=== PATIENT | female | born 1960 | race African-American/Black ===

== ENCOUNTER 2017-07-14 17:19 | Emergency (ER) | payer BC ==
[~2017-07-14] VITALS: Ht 149.9 cm; Wt 95.3 kg
[~2017-07-14 17:19] MED LIST: METHIMAZOLE10 MG PO
[2017-07-14] MEDS ORDERED: MORPHINE SULFATE 4 MG/ML SYR IV STA (18:02)
[2017-07-14] MEDS ORDERED: ONDANSETRON HCL INJ 2 MG/ML VIAL IV STA (18:02)
[2017-07-14] MEDS ORDERED: SODIUM CHLORIDE 0.9% 1000ML 1,000 ML IV STA (18:02)
[2017-07-14] MEDS ORDERED: LIDOCAINE VISC 2% SOLN 15 ML UDC PO ONE (18:15)
[2017-07-14] MEDS ORDERED: MAGNESIUM/ALUMINUM/SIMETHICONE 30 ML UDC PO ONE (18:15)
[2017-07-14 18:21] LABS: BASOPHILS % 0.5 % (0.0-1.0); EOSINOPHILS # (AUTO) 0.3 (0.0-0.4); HEMATOCRIT 43.9 % (34.2-44.1); HEMOGLOBIN 14.1 g/dL (12.0-16.0); LYMPHOCYTES # (AUTO) 2.5 (1.0-3.2); MEAN CORPUSCULAR HEMOGLOBIN 27.8 pg (28-32); MEAN CORPUSCULAR HGB CONC 32.1 g/dL (31-35); MEAN CORPUSCULAR VOLUME 86.4 fL (81-99); MONOCYTES # (AUTO) 0.6 (0.2-0.8); MONOCYTES % 10.9 % (4.4-11.3); NEUTROPHILS # (AUTO) 2.2 (2.1-6.9); NEUTROPHILS % 38.4 % (38.7-80.0); PLATELET COUNT 275 x10e3/uL (140-360); RED BLOOD COUNT 5.08 x10e6/uL (3.6-5.1); RED CELL DISTRIBUTION WIDTH 12.3 % (11.7-14.4)
[2017-07-14 18:37] LABS: ALANINE AMINOTRANSFERASE 12 IU/L (0-55); ALBUMIN 3.8 g/dL (3.5-5.0); ALKALINE PHOSPHATASE 188 IU/L (40-150); AMYLASE 84 U/L (25-125); ANION GAP 10.9 mmol/L (8-16); BLOOD UREA NITROGEN 11 mg/dL (7-26); BUN/CREATININE RATIO 14 (6-25); CALCIUM 8.6 mg/dL (8.4-10.2); CARBON DIOXIDE 26 mmol/L (22-29); CHLORIDE 109 mmol/L (98-107); CREATINE KINASE 69 IU/L (29-168); EST GLOMERULAR FILTRATION RATE > 60 ML/MIN (60-); GLUCOSE 86 mg/dL (74-118); LIPASE 39 U/L (8-78); POTASSIUM 3.9 mmol/L (3.5-5.1); SODIUM 142 mmol/L (136-145)
--- NOTE | 2017-07-14 18:55 | Diagnostic Imaging Report ---
PROCEDURE: A single AP view of the chest. COMPARISON: Patients [facility], , CHEST 2 VIEWS, 08/01/2012, 10:37. INDICATIONS: RIGHT UPPER QUADRANT PAIN FINDINGS: Lines/tubes: None. Lungs: The lungs are well inflated and clear. There is no evidence of pneumonia or pulmonary edema. Pleura: There is no pleural effusion or pneumothorax. Heart and mediastinum: The heart and the mediastinum are unremarkable. Bones: No acute bony abnormality. IMPRESSION: 1. No acute cardiopulmonary abnormalities. Tobias Billings M.D. Dictated by: Tobias Billings M.D. on 07/14/2017 at 18:55 Electronically approved by: Tobias Billings M.D. on 07/14/2017 at 18:55
--- NOTE | 2017-07-14 19:37 | Diagnostic Imaging Report ---
EXAM: Gallbladder Ultrasound INDICATION: Abdominal pain. COMPARISON: None. TECHNIQUE: Transverse and longitudinal images of the gallbladder were obtained. FINDINGS: Liver: 12.0 cm in length. Normal echogenicity. No focal masses. Gallbladder: Stones/Sludge: None Wall: 0.3 cm Appearance: No wall thickening, pericholecystic fluid or hydrops. Sonographic Kahn's Sign: Negative Bile Ducts: Intrahepatic Ducts: No dilatation Extrahepatic Ducts: Common bile duct measures 0.4 cm, no dilatation Free Fluid: No ascites or pleural effusion Pancreas: Visualized portions are unremarkable. The main portal vein measures 0.9 cm in diameter. Visualized abdominal aorta is unremarkable. IMPRESSION: Unremarkable gallbladder ultrasound. Signed by: Dr. Stephon Yoder M.D. on 07/14/2017 7:33 PM
[2017-07-14] MEDS ORDERED: MORPHINE SULFATE 2 MG/ML SYR ONE (19:44)
--- NOTE | 2017-07-14 20:32 | Diagnostic Imaging Report ---
EXAM: CT Abdomen and Pelvis WITHOUT contrast INDICATION: Right upper quadrant and right flank pain. COMPARISON: None. TECHNIQUE: Abdomen and pelvis were scanned utilizing a multidetector helical scanner from the lung base to the pubic symphysis without administration of IV contrast. Absence of intravenous contrast decreases sensitivity for detection of focal lesions and vascular pathology. Coronal and sagittal reformations were obtained. Routine protocol was performed. IV CONTRAST: None. ORAL CONTRAST: Water RADIATION DOSE: Total DLP: 839.92 mGy*cm Estimated effective dose: (DLP x 0.015 x size factor) mSv COMPLICATIONS: None FINDINGS: LINES and TUBES: None. LOWER THORAX: Unremarkable HEPATOBILIARY: No focal hepatic lesions. No biliary ductal dilation. GALLBLADDER: No radio-opaque stones or sludge. No wall thickening. SPLEEN: No splenomegaly. PANCREAS: No focal masses or ductal dilatation. ADRENALS: No adrenal nodules KIDNEYS/URETERS: No hydronephrosis. 1.1 cm mildly high attenuation lesion exophytic of the lower pole of the left kidney cannot be further characterized due to lack of contrast. No stones. GI TRACT: No abnormal distention, wall thickening, or evidence of bowel obstruction. Appendix is normal. PELVIC ORGANS/BLADDER: Mild stranding of the anterior pelvic fat likely postoperative sequela. Small urachal remnant. LYMPH NODES: No lymphadenopathy. VESSELS: Unremarkable. PERITONEUM / RETROPERITONEUM: No free air or fluid. BONES: Unremarkable. SOFT TISSUES: Small fat-containing umbilical hernia. IMPRESSION: 1. No acute abdominal pelvic abnormality. No evidence of urolithiasis or obstructive uropathy. 2. 1.1 cm high attenuation lesion in the lower pole of the right kidney is indeterminate in etiology. Recommend further evaluation with nonemergent CT or MRI of kidneys renal mass protocol. Signed by: Dr. Stephon Yoder M.D. on 07/14/2017 8:29 PM
[2017-07-14 21:00] VITALS: BP 145/87
[2017-07-14] MEDS ORDERED: BELLADONNA ALK/PHENOBARBITAL 5 ML UDC PO SCH (21:00)
== END 2017-07-14 21:01 | disposition home or self-care (01) ==
LOC: ER 17:19
DX: R10.11 Right upper quadrant pain (principal); R10.13 Epigastric pain; R11.0 Nausea; J45.909 Unspecified asthma, uncomplicated; E05.90 Thyrotoxicosis, unspecified without thyrotoxic crisis or storm
CPT/HCPCS: 36415; 71045; 74176; 76705; 80053; 82150; 82550; 82553; 83690; 84484; 85025; 93005; 99284; J2270; J2405; J7030

== ENCOUNTER → 2017-07-22 | Outpatient (CLI) | payer BC ==
--- NOTE | 2017-07-22 19:38 | Diagnostic Imaging Report ---
Bone Scan, three-phase Reason for exam: 56 F with back pain x 3 weeks. Pain starts in RUQ of abdomen and radiates to the back. Abdominal ultrasound showed no evidence of cholecystitis. CT abdomen and pelvis showed no evidence of cholecystitis. Radiopharmaceutical: Tc-99m MDP 27 mCi Comparison: CT abdo/pelvis 07/14/2017; abdominal ultrasound 07/14/2017 Following intravenous administration of the radiopharmaceutical, dynamic flow and immediate blood pool images the abdomen and lower thoracic and lumbar spine followed by delayed total body and selected spot images were obtained. Flow and blood pool images show symmetric distribution of without focal abnormality. The delayed planar images show diffusely increased tracer in the lower thoracic spine without focal abnormality, consistent with mild degenerative change. Otherwise distribution of tracer appears physiologic throughout the skeletal system. Impression: No acute focal abnormality to suggest an etiology of the patient's back pain. Other than mild degenerative changes in the lower thoracic spine, the bone scan is normal.. Signed by: Dr. Isabella Holly M.D. on 07/22/2017 7:35 PM
== END ==
LOC: NM 13:21
PROVIDERS: ATTEND Internal Medicine Pulmonary Disease
DX: M54.9 Dorsalgia, unspecified (principal); R10.11 Right upper quadrant pain
CPT/HCPCS: 78315; A9503

== ENCOUNTER → 2017-07-25 | Outpatient (CLI) | payer BC ==
[2017-07-25 17:40] LABS: BILIRUBIN,URINE NEGATIVE (NEGATIVE); KETONES,URINE NEGATIVE (NEGATIVE); LEUKOCYTE ESTERASE ,URINE NEGATIVE (NEGATIVE); NITRITE,URINE NEGATIVE (NEGATIVE); PROTEIN,URINE DIPSTICK NEGATIVE (NEGATIVE); URINE UROBILINOGEN 1 mg/dL (0.2 - 1)
[2017-07-25 17:44] LABS: CLARITY,URINE CLEAR (CLEAR); COLOR,URINE YELLOW (YELLOW)
[2017-07-25 18:57] LABS: FREE THYROXINE INDEX 3.2095 (1.4-3.8); THYROID STIMULATING HORMONE 0.002 uIU/mL (0.350-4.940)
--- NOTE | 2017-09-08 09:26 | Diagnostic Imaging Report ---
PROCEDURE:MRI ABDOMEN WO COMPARISON:Non-contrast abdominal CT 07/14/2017. INDICATIONS:Abnormal imaging. Follow up abnormality in kidney. TECHNIQUE: Multiplanar multisequence MRI of the abdomen was obtained without contrast. T1 weighted, T2 weighted, Dual echo, and DWI images were obtained. FINDINGS: Lower chest: Unremarkable Hepatobiliary: Normal contour and signal. No focal lesions. No intrahepatic or extrahepatic biliary ductal dilatation. Gallbladder: No stones or sludge. Spleen: No splenomegaly. No focal lesions. Pancreas: No focal masses or ductal dilatation. Adrenals: No nodules. Kidneys: Previous right inferior pole lesion is barely perceived secondary to motion and slice thickness. Lesion measures approximately 0.7 cm and appears T1 isointense to hyperintense relative to the renal cortex (series 7 and 8 image 35) and T2 hypointense (series 9 image 16). No definite restricted diffusion. No hydronephrosis. No left renal masses. GI Tract: Unremarkable. Vessels: Preserved flow voids. Lymph Nodes: No lymphadenopathy. Bones: No suspicious marrow signal abnormalities. CONCLUSION: Limited evaluation without IV contrast. Right renal lesion remains indeterminate and may represent a hemorrhagic/proteinaceous cyst or a solid mass. Consider renal ultrasound for further evaluation. Dictated by: Loki Lee M.D. on 07/25/2017 at 18:51 Electronically approved by: Loki Lee M.D. on 07/25/2017 at 18:51
== END ==
LOC: MRI 16:56
PROVIDERS: ATTEND Internal Medicine Pulmonary Disease
DX: M54.9 Dorsalgia, unspecified (principal); N28.9 Disorder of kidney and ureter, unspecified
CPT/HCPCS: 36415; 74181; 81003; 84436; 84443; 84479; 87086

== ENCOUNTER → 2017-07-29 | Outpatient (CLI) | payer BC ==
--- NOTE | 2017-07-29 17:11 | Diagnostic Imaging Report ---
PROCEDURE:US RETROPERITONEAL ( KIDNEY ). COMPARISON:Patients [facility], MR, MRI ABDOMEN WO, 07/25/2017, 17:54. Patients [facility], CT, CT ABDOMEN/PELVIS WO, 07/14/2017, 20:07. INDICATIONS:RENAL CYST TECHNIQUE: Gabriel-scale and color sonographic images of the bilateral kidneys and bladder where obtained in transverse and longitudinal planes. FINDINGS: Exam limited by patient's body habitus. RIGHT KIDNEY: 10.0 cm, cortex 1.1 cm Cysts: None visualized Solid masses: None Stones: None Hydronephrosis: None Echogenicity: Normal LEFT KIDNEY: 10.1 cm, cortex 1.6 cm Cysts: None Solid masses: None Stones: None Hydronephrosis: None Echogenicity: Normal Bladder: No focal lesions. Bilateral ureteral jets are identified. CONCLUSION: 1. Exam limited by patient's body habitus. The previously described small cyst in the inferior pole of the right kidney could not be visualized on ultrasound. 2. Otherwise, unremarkable exam. Tobias Billings M.D. Dictated by: Tobias Billings M.D. on 07/29/2017 at 17:11 Electronically approved by: Tobias Billings M.D. on 07/29/2017 at 17:11
== END ==
LOC: US 12:35
PROVIDERS: ATTEND Internal Medicine Pulmonary Disease
DX: N28.1 Cyst of kidney, acquired (principal)
CPT/HCPCS: 76770

== ENCOUNTER → 2018-01-20 | Outpatient (CLI) | payer BC | LOC: MAMMO 11:56 | PROVIDERS: ATTEND Obstetrics & Gynecology | DX: Z12.31 Encounter for screening mammogram for malignant neoplasm of breast (principal) | CPT/HCPCS: 77067 ==

== ENCOUNTER 2018-04-02 18:00 | Emergency (ER) | payer BC ==
[~2018-04-02] VITALS: Ht 149.9 cm; Wt 95.3 kg
--- OUTSIDE RECORDS SUMMARY | 2018-04-02 18:03 | XMS REPORT ---
Author [facility] Address Unknown Phone Unavailable Care Team Providers Care Gas Line Repairer Name Role Phone EVIN MORALES Unavailable Unavailable ARNALDO HOGAN Unavailable Unavailable Osman CROUCH Unavailable Unavailable Problems This patient has no known problems. Allergies, Adverse Reactions, Alerts This patient has no known allergies or adverse reactions. Medications This patient has no known medications. Results Test Description Test Time Test Comments Text Results Atomic Results Result Comments MAMMOGRAPHY DIGITAL SCR BILAT 2018-01-20 12:37:00 [place] [address] Patient Name: EILEEN FRIEDMAN MR #: [id number] : 1960 Age/Sex: 57/F Req #: [id number] Adm Physician: Ordered by: EVIN MORALES MD Report #: [id number] Location: MAMMO Room/Bed: Procedure: [id number] MG/MAMMOGRAPHY DIGITAL SCR BILAT Exam Date: 01/20/18 Exam Time: 1215 REPORT STATUS: Signed #[id number] - MGSCRBIL #BILATERAL DIGITAL SCREENING MAMMOGRAM WITH CAD: 01/20/2018 CLINICAL: Routine screening. Comparison is made to exams dated: 11/03/2016 mammogram and 11/03/2015 mammogram - [facility]. Current study contains 4 films. There are scattered fibroglandular elements in both breasts. Current study was also evaluated with a Computer Aided Detection (CAD) system. There are benign calcifications in both breasts. There also are benign lymph nodes in both breasts. No significant masses, calcifications, or other findings are seen in either breast. There has been no significant interval change. IMPRESSION: BENIGN There is no mammographic evidence of malignancy. A 1 year screening mammogram is recommended. The patient will be notified by letter of the results. Willy houston/yulisa:01/26/2018 07:40:29 [employer] Wildlife Biologist: Vale PIERCE)(M), [facility] letter sent: Compared to Prior B9 Mammogram BI- RADS: 2 Benign Dictated By: WILLY OLIVARES DO 9 Transcribed By: YULISA on 01/26/18739 COPY TO: EVIN MORALES MD US RENAL RETROPERITONEAL COMP [place] [address] Patient Name: EILEEN FRIEDMAN MR #: [id number] : 1960 Age/Sex: 56/F Req #: [id number] [facility] Physician: Ordered by: ARNALDO HOGAN MD Report #: [id number] Location: Room/Bed: Procedure: [id number] US/US RENAL RETROPERITONEAL COMP Exam Date: 07/29/17 Exam Time: 1249 REPORT STATUS: Signed PROCEDURE: US RETROPERITONEAL ( KIDNEY ). COMPARISON: [facility], MR, MRI ABDOMEN WO, 07/25/2017, 17:54. [facility], CT, CT ABDOMEN/PELVIS WO, 07/14/2017, 20:07. INDICATIONS: RENAL CYST TECHNIQUE: Gabriel-scale and color sonographic images of the bilateral kidneys and bladder where obtained in transverse and longitudinal planes. FINDINGS: Exam limited by patient's body habitus. RIGHT KIDNEY: 10.0 cm, cortex 1.1 cm Cysts: None visualized Solid masses: None Stones: None Hydronephrosis: None Echogenicity: Normal LEFT KIDNEY: 10.1 cm, cortex 1.6 cm Cysts: None Solid masses: None Stones: None Hydronephrosis: None Echogenicity: Normal Bladder: No focal lesions. Bilateral ureteral jets are identified. CONCLUSION: 1. Exam limited by patient's body habitus. The previously described small cyst in the inferior pole of the right kidney could not be visualized on ultrasound. 2. Otherwise, unremarkable exam. Tobias Cannon M.D. Dictated by: Tobias Cannon M.D. on 07/29/2017 at 17:11 Electronically approved by: Tobias Cannon M.D. on 07/29/2017 at 17:11 Dictated By: TOBIAS CANNON MD 10 Transcribed By: MAKI on 07/29/171710 COPY TO: ARNALDO HOGAN MD MRI ABDOMEN WO [place] [address] Patient Name: EILEEN FRIEDMAN MR #: [id number] : 1960 Age/Sex: 56/F Req #: [id number] Adm Physician: Ordered by: ARNALDO HOGAN MD Report #: [id number] Location: MRI Room/Bed: Procedure: [id number] MRI/MRI ABDOMEN WO Exam Date: Exam Time: REPORT STATUS: Signed PROCEDURE: MRI ABDOMEN WO COMPARISON: Non-contrast abdominal CT 07/14/2017. INDICATIONS: Abnormal imaging. Follow up abnormality in kidney. TECHNIQUE: Multiplanar multisequence MRI of the abdomen was obtained without contrast. T1 weighted, T2 weighted, Dual echo, and DWI images were obtained. FINDINGS: Lower chest: Unremarkable Hepatobiliary: Normal contour and signal. No focal lesions. No intrahepatic or extrahepatic biliary ductal dilatation. Gallbladder: No stones or sludge. Spleen: No splenomegaly. No focal lesions. Pancreas: No focal masses or ductal dilatation. Adrenals: No nodules. Kidneys: Previous right inferior pole lesion is barely perceived secondary to motion and slice thickness. Lesion measures approximately 0.7 cm and appears T1 isointense to hyperi ntense relative to the renal cortex (series 7 and 8 image 35) and T2 hypointense (series 9 image 16). No definite restricted diffusion. No hydronephrosis. No left renal masses. GI Tract: Unremarkable. Vessels: Preserved flow voids. Lymph Nodes: No lymphadenopathy. Bones: No suspicious marrow signal abnormalities. CONCLUSION: Limited evaluation without IV contrast. Right renal lesion remains indeterminate and may represent a hemorrhagic/proteinaceous cyst or a solid mass. Consider renal ultrasound for further evaluation. Dictated by: Casandra Momin M.D. on 07/25/2017 at 18:51 Electronically approved by: Loki Momin M.D. on 07/25/2017 at 18:51 Dictated By: LOKI MOMIN MD 50 Transcribed By: MAKI on 07/25/171850 COPY TO: ARNALDO HOGAN MD BONE SCAN, 3 PHASE [place] [address] Patient Name: EILEEN FRIEDMAN MR #: [id number] : 1960 Age/Sex: 56/F Req #: [id number] Adm Physician: Ordered by: ARNALDO HOGAN MD Report #: [id number] Location: [place] Room/Bed: Procedure: [id number] NM/BONE SCAN, 3 PHASE Exam Date: 07/22/17 Exam Time: 1400 REPORT STATUS: Signed Bone Scan, three-phase Reason for exam: 56 F with back pain x 3 weeks. Pain starts in RUQ of abdomen and radiates to the back. Abdominal ultrasound showed no evidence of cholecystitis. CT abdomen and pelvis showed no evidence of cholecystitis. Radiopharmaceutical: Tc-99m MDP 27 mCi Comparison: CT abdo/pelvis 07/14/2017; abdominal ultrasound 07/14/2017 Following intravenous administration of the radiopharmaceutical, dynamic flow and immediate blood pool images the abdomen and lower thoracic and lumbar spine followed by delayed total body and selected spot images were obtained. Flow and blood pool images show symmetric distribution of without focal abnormality. The delayed planar images show diffusely increased tracer in the lower thoracic spine without focal abnormality, consistent with mild degenerative change. Otherwise distribution of tracer appears physiologic throughout the skeletal system. Impression: No acute focal abnormality to suggest an etiology of the patient's back pain. Other than mild degenerative changes in the lower thoracic spine, the bone scan is normal.. Signed by: Dr. Vale Holly M.D. on 07/22/2017 7:35 PM Dictated By: VALE HOLLY MD 34 Transcribed By: EUGENE on 07/22/171934 COPY TO: ARNALDO HOGAN MD CT ABDOMEN/PELVIS [place] [address] Patient Name: EILEEN FRIEDMAN MR #: [id number] : 1960 Age/Sex: 56/F Req #: [id number] Adm Physician: Ordered by: GRIS SALAZAR MD Report #: [id number] Location: ER Room/Bed: Procedure: [id number] CT/CT ABDOMEN/PELVIS WO Exam Date: 07/14/17 Exam Time: 1999 REPORT STATUS: Signed EXAM: CT Abdomen and Pelvis WITHOUT contrast INDICATION: Right upper quadrant and right flank pain. COMPARISON: None. TECHNIQUE: Abdomen and pelvis were scanned utilizing a multidetector helical scanner from the lung base to the pubic symphysis without administration of IV contrast. Absence of intravenous contrast decreases sensitivity for detection of focal lesions and vascular pathology. Coronal and sagittal reformations were obtained. Routine protocol was performed. IV CONTRAST: None. ORAL CONTRAST: Water RADIATION DOSE: Total DLP: 839.92 mGy*cm Estimated effective dose: (DLP x 0.015 x size factor) mSv COMPLICATIONS: None FINDINGS: LINES and TUBES: None. LOWER THORAX: Unremarkable HEPATOBILIARY: No focal hepatic lesions. No biliary ductal dilation. GALLBLADDER: No radio-opaque stones or sludge. No wall thickening. SPLEEN: No splenomegaly. PANCREAS: No focal masses or ductal dilatation. ADRENALS: No adrenal nodules KIDNEYS/URETERS: No hydronephrosis. 1.1 cm mildly high attenuation lesion exophytic of the lower pole of the left kidney cannot be further characterized due to lack of contrast. No stones. GI TRACT: No abnormal distention, wall thickening, or evidence of bowel obstruction. Appendix is normal. PELVIC ORGANS/BLADDER: Mild stranding of the anterior pelvic fat likely postoperative sequela. Small urachal remnant. LYMPH NODES: No lymphadenopathy. VESSELS: Unremarkable. PERITONEUM / RETROPERITONEUM: No free air or fluid. BONES: Unremarkable. SOFT TISSUES: Small fat- containing umbilical hernia. IMPRESSION: 1. No acute abdominal pelvic abnormality. No evidence of urolithiasis or obstructive uropathy. 2. 1.1 cm high attenuation lesion in the lower pole of the right kidney is indeterminate in etiology. Recommend further evaluation with nonemergent CT or MRI of kidneys renal mass protocol. Signed by: Dr. Stephon Jones M.D. on 07/14/2017 8:29 PM Dictated By: ARGENIS JONES MD, MD 28 Transcribed By: EUGENE on 07/14/172028 COPY TO: GRIS SALAZAR MD CHEST SINGLE (NOT PORTABLE) [facility] [address] [place] [address] Patient Name: EILEEN FRIEDMAN MR #: [id number] : 1960 Age/Sex: 56/F Req #: [id number] Adm Physician: Ordered by: MITZY ELLIS ORDER EDITOR Report #: [id number] Location: ER Room/Bed: Procedure: [id number] DX/CHEST SINGLE (NOT PORTABLE) Exam Date: 07/14/17 Exam Time: 1840 REPORT STATUS: Signed PROCEDURE: A single AP view of the chest. COMPARISON: [facility], , CHEST 2 VIEWS, 08/01/2012, 10:37. INDICATIONS: RIGHT UPPER QUADRANT PAIN FINDINGS: Lines/tubes: None. Lungs: The lungs are well inflated and clear. There is no evidence of pneumonia or pulmonary edema. Pleura: There is no pleural effusion or pneumothorax. Heart and mediastinum: The heart and the mediastinum are unremarkable. Bones: No acute bony abnormality. IMPRESSION: 1. No acute cardiopulmonary abnormalities. Tobias Cannon M.D. Dictated by: Tobias Cannon M.D. on 07/14/2017 at 18:55 Electronically approved by: Tobias Cannon M.D. on 07/14/2017 at 18:55 Dictated By: TOBIAS CANNON MD 54 Transcribed By: MAKI on 07/14/171854 COPY TO: MITZY ELLIS ORDER EDITOR US GALLBLADDER [facility] [address] [place] [address] Patient Name: EILEEN FRIEDMAN MR #: [id number] : 1960 Age/Sex: 56/F Req #: [id number] Adm Physician: Ordered by: MITZY ELLIS ORDER EDITOR Report #: [id number] Location: ER Room/Bed: Procedure: [id number] US/US GALLBLADDER Exam Date: 07/14/17 Exam Time: 1857 REPORT STATUS: Signed EXAM: Gallbladder Ultrasound INDICATION: Abdominal pain. COMPARISON: None. TECHNIQUE: Transverse and longitudinal images of the gallbladder were obtained. FINDINGS: Liver: 12.0 cm in length. Normal echogenicity. No focal masses. Gallbladder: Stones/Sludge: None Wall: 0.3 cm Appearance: No wall thickening, pericholecystic fluid or hydrops. Sonographic Kahn's Sign: Negative Bile Ducts: Intrahepatic Ducts: No dilatation Extrahepatic Ducts: Common bile duct measures 0.4 cm, no dilatation Free Fluid: No ascites or pleural effusion Pancreas: Visualized portions are unremarkable. The main portal vein measures 0.9 cm in diameter. Visualized abdominal aorta is unremarkable. IMPRESSION: Unremarkable gallbladder ultrasound. Signed by: Dr. Stephon Jones M.D. on 07/14/2017 7:33 PM Dictated By: ARGENIS JONES MD, MD 32 Transcribed By: EUGENE on 07/14/171932 COPY TO: MITZY ELLIS ORDER EDITOR
--- NOTE | 2018-04-02 19:26 | Diagnostic Imaging Report ---
EXAMINATION: Head CT HISTORY: Status post fall, trauma, pain COMPARISON: None available TECHNIQUE: Multidetector axial images were obtained without contrast from the foramen magnum to the vertex . The images were reconstructed using brain and bone algorithms. Thin section brain images were reformatted into coronal and sagittal planes. Image quality: Motion/streaking artifact limits the evaluation of the skull base and posterior cranial fossa. Dose modulation, iterative reconstruction, and/or weight based adjustment of the mA/kV was utilized to reduce the radiation dose to as low as reasonably achievable. FINDINGS: Parenchyma: 1. No abnormal densities. 2. No mass or hemorrhage. No CT evidence of acute territorial vascular insult. Extra-axial spaces:No abnormal density. No extra-axial fluid collections Brain volume: Normal for age. Ventricles: No hydrocephalus or displacement. Arteries: No density suggestive of thrombus. Dural sinuses: No abnormal density. Extra-axial spaces: No abnormal density. Foramen magnum: No mass, Chiari malformation, or basilar invagination. Sella: No obvious mass. Paranasal/mastoid sinuses: Imaged portions unremarkable. Skull/Scalp: No lytic or blastic lesions. No fractures. IMPRESSION: No intracranial abnormalities, particularly no hemorrhage. Signed by: Dr. Shala Cabello M.D. on 04/02/2018 7:22 PM
--- NOTE | 2018-04-02 19:29 | Diagnostic Imaging Report ---
EXAMINATION: CT of the cervical spine HISTORY: Status post fall, trauma, pain COMPARISON: None available TECHNIQUE: Multidetector helical axial images were obtained without contrast from the foramen magnum to T1. The images were reconstructed using bone and soft tissue algorithms and were viewed in axial, sagittal and coronal planes. Dose modulation, iterative reconstruction, and/or weight based adjustment of the mA/kV was utilized to reduce the radiation dose to as low as reasonably achievable. FINDINGS: Alignment: Normal alignment and lordosis Soft tissues: Severe enlargement of the thyroid gland with narrowing of the trachea, likely related to multinodular goiter. Vertebrae: Normal height and density. No acute fracture, infection or neoplasm Degenerative changes: Opacification of the posterior longitudinal ligament at C2, C4, C5 and C6 contributes to canal narrowing. C1-C2: Normal C2-C3: No significant and moderate canal stenosis. Foraminal stenosis. Moderate canal stenosis C3-C4: Moderate facet arthrosis without stenosis foraminal stenosis. Canal stenosis. C4-C5: Uncovertebral and facet arthrosis. Severe right C5-C6: Mild canal narrowing C6-C7: Uncovertebral arthrosis without significant stenoses C7-T1: Small disc osteophyte. No significant stenoses IMPRESSION: 1. No acute cervical spine postraumatic abnormalities. 2. Mild chronic degenerative changes of the tail above. Note: Acute postraumatic spinal cord, vascular or ligamentous injuries cannot adequately be assessed by CT. Signed by: Dr. Shala Cabello M.D. on 04/02/2018 7:26 PM
--- NOTE | 2018-04-02 19:29 | Diagnostic Imaging Report ---
Examination: CT Face without Contrast History:Face trauma. Comparison studies: None Technique: Axial images were obtained through the maxillofacial region. Coronal and sagittal reconstructions obtained from the axial data. Dose modulation, iterative reconstruction, and/or weight based adjustment of the mA/kV was utilized to reduce the radiation dose to as low as reasonably achievable. Intravenous contrast: None Findings: Soft tissues: Small right frontal and periorbital soft tissue hematoma. Bones: No fractures or bony abnormalities. Orbits: Globes: Intact Extra or intraconal abnormalities: None. Paranasal sinuses: Mild inflammatory mucosal thickening of the bilateral anterior and posterior paranasal sinuses. IMPRESSION: 1. No acute facial fracture. 2. Small right frontal and periorbital soft tissue hematoma. Signed by: Dr. Teresa Brunson M.D. on 04/02/2018 7:26 PM
[2018-04-02] MEDS ORDERED: TYLENOL WITH C1 EACH PO (19:58)
[2018-04-02 20:19] VITALS: BP 141/70
== END 2018-04-02 20:29 | disposition home or self-care (01) ==
LOC: ER 18:00
DX: S00.83XA Contusion of other part of head, initial encounter (principal); S00.11XA Contusion of right eyelid and periocular area, initial encounter; S50.11XA Contusion of right forearm, initial encounter; R51 Headache; Y93.E1 Activity, personal bathing and showering; Y92.002 Bathroom of unspecified non-institutional (private) residence as the place of occurrence of the external cause; E07.9 Disorder of thyroid, unspecified; E66.9 Obesity, unspecified
CPT/HCPCS: 70450; 70486; 72125; 99283

== ENCOUNTER → 2018-04-18 | Day surgery (SDC) | payer BC ==
[~2018-04-18] MED LIST changes: +FENTANYL CITRATE/PF 100MCG/2 ML INJ ONE; +LIDOCAINE HCL 2% LOCAL INJ 5 ML SDV VIAL INJ ONE; +MIDAZOLAM HCL 2 MG/2 ML VIAL ONE; +PROPOFOL IV EMULSION 10 MG/ML 20 ML VIAL ONE; +TYLENOL WITH C1 EACH PO
== END | disposition home or self-care (01) ==
LOC: OR 05:44
PROVIDERS: ATTEND Internal Medicine Gastroenterology
DX: Z12.11 Encounter for screening for malignant neoplasm of colon (principal); J45.909 Unspecified asthma, uncomplicated; D86.9 Sarcoidosis, unspecified; D12.0 Benign neoplasm of cecum; K64.8 Other hemorrhoids; Z01.810 Encounter for preprocedural cardiovascular examination; Z88.0 Allergy status to penicillin; Z68.41 Body mass index [BMI] 40.0-44.9, adult
CPT/HCPCS: 45384; 93005; J2001; J2250; J2704; 45378

== ENCOUNTER 2018-06-20 13:31 | Emergency (ER) | payer BC, OTHER ==
[~2018-06-20] VITALS: Ht 149.9 cm; Wt 97.1 kg
[~2018-06-20 13:31] MED LIST changes: -FENTANYL CITRATE/PF 100MCG/2 ML INJ ONE; -LIDOCAINE HCL 2% LOCAL INJ 5 ML SDV VIAL INJ ONE; -MIDAZOLAM HCL 2 MG/2 ML VIAL ONE; -PROPOFOL IV EMULSION 10 MG/ML 20 ML VIAL ONE
[2018-06-20] MEDS ORDERED: ALBUTEROL SULF 0.083% NEB SOLN 3 ML NEB NEB STA (13:43)
[2018-06-20] MEDS ORDERED: IPRATROPIUM BROMIDE 0.02% 2.5 ML NEB NEB ONE (13:45)
[2018-06-20] MEDS ORDERED: METHYLPREDNISOLONE SOD SUCC 125 MG/2ML VIAL IV ONE (13:45)
--- NOTE | 2018-06-20 14:57 | Diagnostic Imaging Report ---
EXAMINATION: CXR 2 VIEW - HOPD INDICATION: Wheezing. COMPARISON: None FINDINGS: TUBES and LINES: None. LUNGS: Lungs are mildly hyperinflated. Mild bronchial wall thickening. No evidence of lobar consolidation. PLEURA: No pleural effusion or pneumothorax. HEART AND MEDIASTINUM: The cardiomediastinal silhouette is unremarkable. BONES AND SOFT TISSUES: No acute osseous abnormality. Degenerative changes of the visualized spine. UPPER ABDOMEN: No free air under the diaphragm. IMPRESSION: Mildly hyperinflated lungs consistent with reactive airways disease. Mild bronchial wall thickening, which could reflect bronchitis. No evidence of lobar pneumonia. Signed by: Dr. Mateusz Norris MD on 06/20/2018 2:54 PM
== END 2018-06-20 15:25 | disposition home or self-care (01) ==
LOC: FSED 13:31
DX: R06.00 Dyspnea, unspecified (principal); R05 Cough; J45.901 Unspecified asthma with (acute) exacerbation; Z87.891 Personal history of nicotine dependence
CPT/HCPCS: 71046; 99284; J2930

== ENCOUNTER → 2018-12-07 | Outpatient (CLI) | payer BC ==
[2018-12-07 11:26] LABS: BASOPHILS % 0.6 % (0.0-1.0); EOSINOPHILS # (AUTO) 0.3 (0.0-0.4); EOSINOPHILS % 5.7 % (0.0-6.0); HEMATOCRIT 36.9 % (34.2-44.1); HEMOGLOBIN 11.2 g/dL (12.0-16.0); LYMPHOCYTES # (AUTO) 1.8 (1.0-3.2); LYMPHOCYTES % 35.2 % (18.0-39.1); MEAN CORPUSCULAR HEMOGLOBIN 25.6 pg (28-32); MEAN CORPUSCULAR HGB CONC 30.4 g/dL (31-35); MEAN CORPUSCULAR VOLUME 84.2 fL (81-99); MONOCYTES # (AUTO) 0.5 (0.2-0.8); MONOCYTES % 8.8 % (4.4-11.3); NEUTROPHILS # (AUTO) 2.5 (2.1-6.9); NEUTROPHILS % 49.5 % (38.7-80.0); PLATELET COUNT 305 x10e3/uL (140-360); RED BLOOD COUNT 4.38 x10e6/uL (3.6-5.1); RED CELL DISTRIBUTION WIDTH 12.6 % (11.7-14.4)
[2018-12-07 11:48] LABS: ALANINE AMINOTRANSFERASE 7 IU/L (0-55); ALBUMIN 3.8 g/dL (3.5-5.0); ALKALINE PHOSPHATASE 120 IU/L (40-150); BLOOD UREA NITROGEN 13 mg/dL (7-26); BUN/CREATININE RATIO 15 (6-25); CARBON DIOXIDE 26 mmol/L (22-29); CHLORIDE 108 mmol/L (98-107); CHOL/HDL RATIO 2.3 (3.0-3.6); CHOLESTEROL 179 MD/DL (0-199); CREATININE, SERUM 0.84 mg/dL (0.57-1.11); EST GLOMERULAR FILTRATION RATE > 60 ML/MIN (60-); GLUCOSE 98 mg/dL (74-118); HDL CHOLESTEROL 77 MG/DL (40-60); LDL CHOLESTEROL 93 MG/DL (60-130); SODIUM 141 mmol/L (136-145); TRIGLYCERIDES 43 MG/DL (0-149)
--- NOTE | 2018-12-07 12:04 | Diagnostic Imaging Report ---
EXAMINATION: CHEST 2 VIEWS INDICATION: Asthma COMPARISON: Chest radiograph of 06/20/2018 FINDINGS: TUBES and LINES: None. LUNGS: The lung volumes are normal. Patchy opacity at the right lung base, new compared to 06/20/2018. PLEURA: No pleural effusion or pneumothorax. HEART AND MEDIASTINUM: The cardiomediastinal silhouette is normal in size and contour. BONES AND SOFT TISSUES: No acute fracture or dislocation. UPPER ABDOMEN: No free air under the diaphragm. IMPRESSION: Patchy opacity at the right lung base is new compared to the prior 06/20/2018 and may represent aspiration or early pneumonia in the proper clinical setting. Signed by: Jose Browne MD on 12/07/2018 12:01 PM
[2018-12-07 12:08] LABS: FREE THYROXINE INDEX 2.4157 (1.4-3.8); THYROID STIMULATING HORMONE 0.533 uIU/mL (0.350-4.940)
[2018-12-07 12:26] LABS: FOLATE 8.3 ng/mL (7.0-15.4)
== END ==
LOC: RAD 10:40
PROVIDERS: ATTEND Internal Medicine Pulmonary Disease
DX: J45.909 Unspecified asthma, uncomplicated (principal); D86.9 Sarcoidosis, unspecified; E04.9 Nontoxic goiter, unspecified
CPT/HCPCS: 36415; 71046; 80053; 80061; 82607; 82652; 82670; 82746; 84436; 84443; 84479; 85025

== ENCOUNTER → 2019-01-22 | Outpatient (CLI) | payer BC ==
--- NOTE | 2019-01-30 09:29 | Diagnostic Imaging Report ---
#[id number] - MGSCRBIL #BILATERAL DIGITAL SCREENING MAMMOGRAM WITH CAD: 01/22/2019 CLINICAL: Routine screening. Comparison is made to exams dated: 01/20/2018 mammogram and 11/03/2015 mammogram - [facility]. Current study contains 5 films. There are scattered fibroglandular elements in both breasts. Current study was also evaluated with a Computer Aided Detection (CAD) system. There are benign calcifications in both breasts. There is a benign node in the right breast. No significant masses, calcifications, or other findings are seen in either breast. IMPRESSION: BENIGN There is no mammographic evidence of malignancy. A 1 year screening mammogram is recommended. The patient will be notified by letter of the results. MITZY MALAVE M.D. ct/penrad:01/26/2019 12:00:01 Process Expert: Isabella DAVIS(Babatunde)(Isamar), [facility] letter sent: Normal Exam Mammogram BI-RADS: 2 Benign
== END ==
LOC: MAMMO 11:51
PROVIDERS: ATTEND Obstetrics & Gynecology
DX: Z12.31 Encounter for screening mammogram for malignant neoplasm of breast (principal)
CPT/HCPCS: 77067

== ENCOUNTER → 2020-01-29 | Outpatient (CLI) | payer BC ==
--- NOTE | 2020-02-01 08:21 | Diagnostic Imaging Report ---
#[id number] - MGSCRBIL #BILATERAL DIGITAL SCREENING MAMMOGRAM WITH CAD: 01/29/2020 CLINICAL: Routine screening. Comparison is made to exams dated: 01/22/2019 mammogram and 01/20/2018 mammogram - [facility]. Current study contains 4 films. There are scattered fibroglandular elements in both breasts. Current study was also evaluated with a Computer Aided Detection (CAD) system. Benign appearing calcifications are noted bilaterally. No significant masses, calcifications, or other findings are seen in either breast. IMPRESSION: BENIGN There is no mammographic evidence of malignancy. A 1 year screening mammogram is recommended. The patient will be notified by letter of the results. MITZY MALAVE M.D. ct/penrad:01/31/2020 15:55:55 Flash Welder: Isabella DAVIS(R)(M), [facility] letter sent: Normal Exam Mammogram BI-RADS: 2 Benign
== END ==
LOC: MAMMO 14:03
PROVIDERS: ATTEND Obstetrics & Gynecology
DX: Z12.31 Encounter for screening mammogram for malignant neoplasm of breast (principal)
CPT/HCPCS: 77067

== ENCOUNTER → 2020-05-27 | Outpatient (CLI) | payer OTHER ==
[~2020-05-27] MED LIST changes: +COVID-19 VACC, MRNA(MODERNA)/PF 100 MCG/0.5 ML VIAL IM ONE
== END ==
LOC: VACCPMC 17:30
DX: Z23 Encounter for immunization (principal); Z20.828 Contact with and (suspected) exposure to other viral communicable diseases

== ENCOUNTER → 2020-07-04 | Outpatient (CLI) | payer OTHER | END | DRG 951 | LOC: VACCPMC 11:00 | DX: Z23 Encounter for immunization (principal); Z20.822 Contact with and (suspected) exposure to COVID-19 | CPT/HCPCS: 0012A; 91301 ==

== ENCOUNTER → 2021-03-06 | Outpatient (CLI) | payer OTHER ==
[~2021-03-06] MED LIST changes: -COVID-19 VACC, MRNA(MODERNA)/PF 100 MCG/0.5 ML VIAL IM ONE
[2021-03-06 11:52] LABS: BASOPHILS % 0.8 % (0.0-1.0); EOSINOPHILS # (AUTO) 0.2 (0.0-0.4); EOSINOPHILS % 3.6 % (0.0-6.0); HEMATOCRIT 40.7 % (34.2-44.1); HEMOGLOBIN 12.7 g/dL (12.0-16.0); LYMPHOCYTES # (AUTO) 1.7 (1.0-3.2); LYMPHOCYTES % 34.9 % (18.0-39.1); MEAN CORPUSCULAR HEMOGLOBIN 27.3 pg (28-32); MEAN CORPUSCULAR HGB CONC 31.2 g/dL (31-35); MEAN CORPUSCULAR VOLUME 87.3 fL (81-99); MONOCYTES # (AUTO) 0.5 (0.2-0.8); NEUTROPHILS # (AUTO) 2.5 (2.1-6.9); NEUTROPHILS % 50.5 % (38.7-80.0); PLATELET COUNT 315 x10e3/uL (140-360); RED BLOOD COUNT 4.66 x10e6/uL (3.6-5.1); RED CELL DISTRIBUTION WIDTH 13.2 % (11.7-14.4)
[2021-03-06 12:14] LABS: ALBUMIN 3.9 g/dL (3.5-5.0); ALBUMIN/GLOBULIN RATIO 1.2 (0.8-2.0); ANION GAP 10.2 mmol/L (8-16); CALCIUM 8.9 mg/dL (8.4-10.2); CREATININE, SERUM 0.88 mg/dL (0.57-1.11); POTASSIUM 3.2 mmol/L (3.5-5.1)
[2021-03-06 12:15] LABS: CHOL/HDL RATIO 2.6 (3.0-3.6)
[2021-03-06 12:34] LABS: THYROID STIMULATING HORMONE 0.57 uIU/mL (0.350-4.940)
== END ==
LOC: MAMMO 10:21
PROVIDERS: ATTEND Internal Medicine Pulmonary Disease
DX: Z12.31 Encounter for screening mammogram for malignant neoplasm of breast (principal); D86.9 Sarcoidosis, unspecified; Z80.3 Family history of malignant neoplasm of breast; E05.90 Thyrotoxicosis, unspecified without thyrotoxic crisis or storm; M25.552 Pain in left hip; M25.551 Pain in right hip; J45.909 Unspecified asthma, uncomplicated
CPT/HCPCS: 36415; 71046; 73523; 77067; 77080; 80053; 80061; 84443; 85025

== ENCOUNTER → 2021-03-26 | Outpatient (CLI) | payer OTHER ==
[~2021-03-26] MED LIST changes: +COVID-19 VACC, MRNA(MODERNA)/PF 100 MCG/0.5 ML VIAL IM ONE
== END ==
LOC: VACCPMC 10:00
DX: Z23 Encounter for immunization (principal); Z20.822 Contact with and (suspected) exposure to COVID-19

== ENCOUNTER → 2022-03-04 | Outpatient (CLI) | payer BC ==
[~2022-03-04] MED LIST changes: -COVID-19 VACC, MRNA(MODERNA)/PF 100 MCG/0.5 ML VIAL IM ONE
== END ==
LOC: MAMMO 09:25
PROVIDERS: ATTEND Internal Medicine Pulmonary Disease
DX: Z12.31 Encounter for screening mammogram for malignant neoplasm of breast (principal)
CPT/HCPCS: 77067

== ENCOUNTER → 2022-07-19 | Day surgery (SDC) | payer BC ==
[~2022-07-19] MED LIST changes: +LIDOCAINE HCL 2% LOCAL INJ 5 ML SDV VIAL INJ ONE; +PROPOFOL IV EMULSION 10 MG/ML 20 ML VIAL ONE; +SYMBICORT 80-10.2 GM INH
[2022-07-19 08:09] VITALS: BP 132/86
== END | disposition home or self-care (01) ==
LOC: ENDO 07:05
PROVIDERS: ATTEND Surgery
DX: K21.9 Gastro-esophageal reflux disease without esophagitis (principal); K31.7 Polyp of stomach and duodenum; K25.9 Gastric ulcer, unspecified as acute or chronic, without hemorrhage or perforation; K20.90 Esophagitis, unspecified without bleeding; K44.9 Diaphragmatic hernia without obstruction or gangrene; I10 Essential (primary) hypertension; J45.909 Unspecified asthma, uncomplicated; E66.01 Morbid (severe) obesity due to excess calories; Z88.0 Allergy status to penicillin; Z01.810 Encounter for preprocedural cardiovascular examination; Z79.899 Other long term (current) drug therapy; Z68.42 Body mass index [BMI] 45.0-49.9, adult
CPT/HCPCS: 43239; 88305; 88342; 93005; J2001; J2704

== ENCOUNTER 2022-10-04 05:23 | Inpatient (IN) | payer BC ==
[2022-10-04] VITALS (13 sets, daily range): BP systolic 131–161; BP diastolic 67–88; PULSE 70–76; RESP 14–20; TEMP 97–98.1; O2SAT 98–100
[~2022-10-04] VITALS: Ht 149.9 cm; Wt 97.5 kg
[~2022-10-04 05:23] MED LIST changes: +CENTRUM ADULTS1 EACH PO; -LIDOCAINE HCL 2% LOCAL INJ 5 ML SDV VIAL INJ ONE; +PREDNISONE10 MG PO; -PROPOFOL IV EMULSION 10 MG/ML 20 ML VIAL ONE
[2022-10-04] MEDS ORDERED: LACTATED RINGER'S 1,000 ML ONE (05:56)
[2022-10-04] MEDS ORDERED: LEVOFLOXACIN 500MG/D5W 100ML 100 ML IV ONE (05:56)
[2022-10-04] MEDS ORDERED: BUPIVACAINE HCL 0.5% INJ 30 ML VIAL INJ ONE (07:34)
[2022-10-04] MEDS ORDERED: BUPIVACAINE HCL 0.25% 10ML MPF VIAL INJ ONE (07:43)
[2022-10-04] MEDS ORDERED: HYDROCODONE/APAP 7.5MG-325MG 1 EA TAB PO PRN (07:45)
[2022-10-04] MEDS ORDERED: SCOPOLAMINE 1 MG PATCH TOP SCH (07:45)
[2022-10-04] MEDS ORDERED: ONDANSETRON HCL INJ 2MG/ML 2ML 2 MG/ML VIAL IV PRN (07:45)
[2022-10-04] MEDS ORDERED: SODIUM CHLORIDE 0.9% 250ML 250 ML ONE (08:32)
[2022-10-04] MEDS ORDERED: SUGAMMADEX SODIUM 200 MG/2 ML VIAL IV ONE (09:07)
[2022-10-04] MEDS ORDERED: ACETAMINOPHEN 1000 MG/100 ML 100 ML IV ONE (10:17)
[2022-10-04] MEDS ORDERED: ACETAMINOPHEN 1000 MG/100 ML IV ONE (10:20)
[2022-10-04] MEDS ORDERED: FENTANYL CITRATE/PF 100MCG/2 ML INJ ONE ×3 (10:42→12:35)
[2022-10-04] MEDS ORDERED: DEXAMETHASONE SOD PHOS INJ 4 MG/ML SDV ONE (11:51)
[2022-10-04] MEDS ORDERED: LIDOCAINE HCL 2% LOCAL INJ 5 ML SDV VIAL INJ ONE (11:51)
[2022-10-04] MEDS ORDERED: SEVOFLURANE INHAL SOLN 250 ML PEN BTL ONE (11:51)
[2022-10-04] MEDS ORDERED: POVIDONE IODINE 0.05% 0.05 % ML PO ONE (11:51)
[2022-10-04] MEDS ORDERED: ONDANSETRON HCL INJ 2MG/ML 2ML 2 MG/ML VIAL ONE (11:51)
[2022-10-04] MEDS ORDERED: SUCCINYLCHOLINE CHLORIDE 20 MG/ML 10ML VIAL ONE (11:51)
[2022-10-04] MEDS ORDERED: ROCURONIUM BROMIDE 10 MG/ML 5ML VIAL IV ONE (11:51)
[2022-10-04] MEDS ORDERED: PROPOFOL IV EMULSION 10 MG/ML 20 ML VIAL ONE (11:51)
[2022-10-04] MEDS ORDERED: ROPIVACAINE 0.5% 5 MG/ML 30 ML SDV ONE (11:55)
[2022-10-04] MEDS ORDERED: DEXAMETHASONE SOD PHOS 10 MG/1 ML VIAL ONE (11:55)
[2022-10-04] MEDS ORDERED: MIDAZOLAM HCL 2 MG/2 ML VIAL ONE ×2 (12:00→12:35)
[2022-10-04] MEDS: SODIUM CHLORIDE 0.9% 1000ML 1,000 ML IV SCH ×3 (12:56→20:44)
[2022-10-04] MEDS: Morphine 2mg Syringe 2 MG/ML SYR IV PRN (18:08)
[2022-10-04] MEDS: ENOXAPARIN SOD INJ 40 MG/0.4 ML SYR SC SCH (20:45)
[2022-10-05] MEDS: Morphine 2mg Syringe 2 MG/ML SYR IV PRN (01:01)
[2022-10-05 01:14] VITALS: BP 137/80; PULSE 76; RESP 22; TEMP 98.6; O2SAT 100
[2022-10-05] MEDS: SODIUM CHLORIDE 0.9% 1000ML 1,000 ML IV SCH (04:33)
[2022-10-05 05:02] LABS: BASOPHILS % 0.1 % (0.0-1.0); HEMATOCRIT 40.2 % (34.2-44.1); HEMOGLOBIN 12.6 g/dL (12.0-16.0); LYMPHOCYTES # (AUTO) 0.9 (1.0-3.2); MEAN CORPUSCULAR HEMOGLOBIN 28.8 pg (28-32); MEAN CORPUSCULAR HGB CONC 31.3 g/dL (31-35); MONOCYTES # (AUTO) 0.9 (0.2-0.8); MONOCYTES % 9.3 % (4.4-11.3); NEUTROPHILS # (AUTO) 8.1 (2.1-6.9); NEUTROPHILS % 81.3 % (38.7-80.0); PLATELET COUNT 311 x10e3/uL (140-360); RED BLOOD COUNT 4.37 x10e6/uL (3.6-5.1); RED CELL DISTRIBUTION WIDTH 12.4 % (11.7-14.4)
[2022-10-05 05:27] LABS: ALBUMIN 3.8 g/dL (3.5-5.0); ALBUMIN/GLOBULIN RATIO 1.2 (0.8-2.0); ANION GAP 12.5 mmol/L (8-16); CREATININE, SERUM 0.83 mg/dL (0.57-1.11); PHOSPHORUS 3.1 MG/DL (2.3-4.7); POTASSIUM 3.5 mmol/L (3.5-5.1)
[2022-10-05 06:51] VITALS: PULSE 72; RESP 16; O2SAT 96
[2022-10-05] MEDS ORDERED: POTASSIUM CHLORIDE 10MEQ EA PO ONE ×2 (07:00→11:30)
[2022-10-05 08:35] VITALS: BP 131/92; PULSE 67; RESP 20; TEMP 98.8; O2SAT 100
[2022-10-05] MEDS: ENOXAPARIN SOD INJ 40 MG/0.4 ML SYR SC SCH (10:54)
[2022-10-07] MEDS ORDERED: SCOPOLAMINE 1 MG PATCH TOP SCH (10:00)
== END 2022-10-05 11:58 | disposition home or self-care (01) | DRG 621 ==
LOC: OR 05:23 → PACU V 10:32 → MED/SURG 12:16
PROVIDERS: ADMIT Internal Medicine; ATTEND Internal Medicine
PROC: 0BQT3ZZ Repair Diaphragm, Percutaneous Approach (ICD-10-PCS; principal; 2022-10-04 07:52)
PROC: 0DB64Z3 Excision of Stomach, Percutaneous Endoscopic Approach, Vertical (ICD-10-PCS; 2022-10-04 07:52)
DX: E66.01 Morbid (severe) obesity due to excess calories (principal); Z68.33 Body mass index [BMI] 33.0-33.9, adult; I10 Essential (primary) hypertension; K44.9 Diaphragmatic hernia without obstruction or gangrene; K21.9 Gastro-esophageal reflux disease without esophagitis; J45.909 Unspecified asthma, uncomplicated; Z88.0 Allergy status to penicillin; Z20.822 Contact with and (suspected) exposure to COVID-19
CPT/HCPCS: 0223U; 36415; 80053; 83735; 84100; 85025; 94799; J0330; J1100; J1650; J1956; J2001; J2250; J2270; J2405; J2795; J7030; J7050

== ENCOUNTER → 2023-10-11 | Outpatient (REF) | payer BC ==
[2023-10-11 12:41] LABS: BASOPHILS % 0.6 % (0.0-1.0); EOSINOPHILS # (AUTO) 0.3 (0.0-0.4); EOSINOPHILS % 6.7 % (0.0-6.0); HEMATOCRIT 39.5 % (34.2-44.1); HEMOGLOBIN 12.4 g/dL (12.0-16.0); LYMPHOCYTES # (AUTO) 2.3 (1.0-3.2); MEAN CORPUSCULAR HEMOGLOBIN 28.7 pg (28-32); MEAN CORPUSCULAR HGB CONC 31.4 g/dL (31-35); MEAN CORPUSCULAR VOLUME 91.4 fL (81-99); MONOCYTES # (AUTO) 0.5 (0.2-0.8); MONOCYTES % 9.7 % (4.4-11.3); NEUTROPHILS # (AUTO) 1.9 (2.1-6.9); NEUTROPHILS % 36.8 % (38.7-80.0); PLATELET COUNT 287 x10e3/uL (140-360); RED BLOOD COUNT 4.32 x10e6/uL (3.6-5.1); RED CELL DISTRIBUTION WIDTH 12.3 % (11.7-14.4); WHITE BLOOD COUNT 5.07 x10e3/uL (4.8-10.8)
[2023-10-11 13:04] LABS: ALBUMIN 3.9 g/dL (3.5-5.0); ALBUMIN/GLOBULIN RATIO 1.1 (0.8-2.0); ANION GAP 11.9 mmol/L (8-16); BILIRUBIN,TOTAL 0.5 mg/dL (0.2-1.2); CREATININE, SERUM 0.87 mg/dL (0.57-1.11); POTASSIUM 3.9 mmol/L (3.5-5.1); TOTAL PROTEIN 7.3 g/dL (6.5-8.1)
[2023-10-11 13:24] LABS: THYROID STIMULATING HORMONE 0.404 uIU/mL (0.350-4.940)
== END ==
LOC: LAB 12:17
PROVIDERS: ATTEND Internal Medicine Pulmonary Disease
DX: D86.9 Sarcoidosis, unspecified (principal)
CPT/HCPCS: 36415; 80053; 82607; 83540; 84443; 84466; 85025

== ENCOUNTER → 2024-03-16 | Outpatient (REF) | payer BC | LOC: MAMMO 14:39 | PROVIDERS: ATTEND Internal Medicine Pulmonary Disease | DX: Z12.31 Encounter for screening mammogram for malignant neoplasm of breast (principal) | CPT/HCPCS: 77067 ==

== ENCOUNTER → 2024-12-14 | Outpatient (REF) | payer BC ==
[~2024-12-14] MED LIST changes: +CELEBREX200 MG PO
== END ==
LOC: RAD 08:00 → EDSTATUS 12-23 10:00
PROVIDERS: ATTEND Internal Medicine Gastroenterology
DX: Z01.818 Encounter for other preprocedural examination (principal); Z12.11 Encounter for screening for malignant neoplasm of colon
CPT/HCPCS: 93005

== ENCOUNTER → 2025-03-18 | Outpatient (REF) | payer BC | LOC: MAMMO 09:12 | PROVIDERS: ATTEND Internal Medicine Pulmonary Disease | DX: Z12.31 Encounter for screening mammogram for malignant neoplasm of breast (principal) | CPT/HCPCS: 77067 ==